=== PATIENT | female | born 1980 | race African-American/Black ===

== ENCOUNTER 2019-07-09 08:51 | Emergency (ER) | payer BC ==
[~2019-07-09] VITALS: Ht 157.5 cm; Wt 70.3 kg
[~2019-07-09 08:51] MED LIST: ADVAIR 250-501 EACH INH; ALBUTEROL2.5 MG/0.5 IH; ALDACTONE25 MG PO; AVELOX 400 MG400 M1 PO; CLARINEX-D 121 EACH PO; SINGULAIR 10 MG10 M1 PO; VENTOLIN HFA 1818 GM INH; ZENCHENT1 EACH PO
[2019-07-09] MEDS ORDERED: PREDNISONE 10 M10 M1 PO (09:16)
[2019-07-09 09:45] VITALS: BP 131/89
== END 2019-07-09 10:00 | disposition home or self-care (01) ==
LOC: ER 08:51
DX: T78.49XA Other allergy, initial encounter (principal); R11.2 Nausea with vomiting, unspecified; R05 Cough; J45.909 Unspecified asthma, uncomplicated; Z88.1 Allergy status to other antibiotic agents; Z91.018 Allergy to other foods; Y92.89 Other specified places as the place of occurrence of the external cause